=== PATIENT | female | born 1985 | race Caucasian/White ===

== ENCOUNTER 2017-06-23 10:52 | Emergency (ER) | payer OTHER ==
[2017-06-23 11:26] VITALS: BP 96/60
[2017-06-23 12:17] LABS: Bacteria,Urine 1+ /HPF (Negative); Bilirubin,Urine NEG (Negative); Blood,Urine NEG (Negative); Ketones,Urine NEG (Negative); Leukocyte Esterase,Urine NEG (Negative); Nitrite,Urine NEG (Negative); Protein,Urine <15 mg/dL mg/dL (Negative); Urobilinogen,Urine < 2.0 mg/dL (<2.0)
== END 2017-06-23 13:44 ==
LOC: ED 10:52
DX: Z53.21 Procedure and treatment not carried out due to patient leaving prior to being seen by health care provider (principal)
CPT/HCPCS: 81001; 81025

== ENCOUNTER 2020-06-27 02:56 | Inpatient (IN) | payer OTHER, MEDICAID ==
[2020-06-27] MEDS ORDERED: ACETAMINOPHEN 325 MG TAB PO PRN ×2 (04:12→05:31)
[2020-06-27] MEDS ORDERED: fentaNYL 100 MCG/2 ML INJ IV PRN (04:12)
[2020-06-27] MEDS ORDERED: MINERAL OIL 30 ML ORAL LIQD PO PRN (04:12)
[2020-06-27] MEDS ORDERED: TERBUTALINE 1 MG/1 ML INJ SUB-Q PRN (04:12)
[2020-06-27] MEDS ORDERED: LIDOCAINE (2%) 20 MG/1 ML VIAL 20 ML MDV INFILTRATI ONE (04:12)
[2020-06-27] MEDS ORDERED: AMPICILLIN/NS 2 GM/100 ML 2 GM/100 ML BAG IV ONE (04:12)
[2020-06-27] MEDS ORDERED: ePHEDrine SULFATE 50 MG/1 ML INJ IV PRN (04:12)
--- NOTE | 2020-06-27 04:21 | History and Physical Report ---
History of Present Illness Date of examination: 06/27/20 Date of admission: 06/27/2020 Chief complaint: Contractions History of present illness: 35 year old presents to L&D with contractions. RN reports patient's water broke while in triage. Patient received care at [facility] and records are available. LMP 10/01/2019. EDC 07/07/2020. significant for the following: AMA, GBS positive, pregestational diabetes, diet controlled. labs are as follows: O+, antibody screen negative, rubella immune, hepatitis B surface antigen negative, HIV negative, RPR nonreactive, gonorrhea negative, chlamydia negative, trichomonas negative, hemoglobin electrophoresis AA, tetra screen negative, 1 hour sugar test 181, 3 hour OGTT 73, 200, 159, 69, GBS positive. Past History Past Medical History: other (history of gestational diabetes with a previous ) Past Surgical History: no surgical history [employer]EL[employer] History: denies: chlamydia, gonorrhea, hepatitis B, hepatitis C, herpes, HIV, syphilis, trichomonas Family/Genetic History: none Social history: , full code. denies: smoking, alcohol abuse, prescription drug abuse, IV drug use - Obstetrical History Expected Date of Delivery: 07/07/20 Actual Gestation: 38 Week(s) 4 Day(s) : 2 Para: 1 Hx # Term Pregnancies: 1 Number of Pregnancies: 0 Spontaneous Abortions: 0 Induced : 0 Number of Living Children: 1 Medications and Allergies Allergies Allergy/AdvReac Type Severity Reaction Status Date / Time No Known Allergies Allergy Verified 06/27/20 04:17 Active Meds: Active Medications Acetaminophen (Tylenol) 650 mg PO Q4H PRN PRN Reason: Pain, Mild (1-3) Ephedrine Sulfate (Ephedrine Sulfate) 10 mg IV Q2M PRN PRN Reason: Hypotension Fentanyl (Sublimaze) 100 mcg IV Q2H PRN PRN Reason: Pain,Severe (7-10) LABOR PAIN Lactated Ringer's (Lactated Ringers) 1,000 mls @ 125 mls/hr IV DIRECT GEMA Oxytocin/Sodium Chloride (Pitocin/Ns 20 Unit/1000ml Drip) 20 units in 1,000 mls @ 125 mls/hr IV DIRECT GEMA Ampicillin Sodium (Ampicillin/Ns 2 Gm/100 Ml) 2 gm in 100 mls @ 100 mls/hr IV ONCE ONE; Protocol Stop: 06/27/20 05:11 Ampicillin Sodium (Ampicillin/Ns 1 Gm/50 Ml) 1 gm in 50 mls @ 100 mls/hr IV Q4HR GEMA; Protocol Lidocaine (Xylocaine 2%) 20 ml INFILTRATI ONCE ONE Stop: 06/27/20 04:13 Mineral Oil (Mineral Oil) 30 ml PO QHS PRN PRN Reason: Constipation Terbutaline Sulfate (Brethine) 0.25 mg SUB-Q ONCE PRN PRN Reason: Hyperstimulation/Hypertonicity Review of Systems All systems: negative (contractions and leaking of water from vagina) - Vital Signs Vital signs: Vital Signs Pulse Pulse Ox 77 99 06/27/20 03:22 06/27/20 03:22 Temp Pulse Resp BP Pulse Ox 99.8 F H 82 20 109/62 96 06/27/20 03:24 06/27/20 04:02 06/27/20 03:24 06/27/20 03:24 06/27/20 04:02 - Physical Exam Abdomen: Positive: normal appearance, soft. Negative: distention, tenderness, guarding, rigidity Genitourinary (Female): Positive: normal external genitalia, normal perenium. Negative: perineal/vulvar lesions (no lesions noted on careful exam) Vagina: Positive: other (clear fluid seen leaking from vagina, moderate amount) Uterus: Positive: enlarged. Negative: tender Anus/Rectum: Positive: normal perianal skin Extremities: Positive: normal. Negative: tenderness, edema - Obstetrical FHR: category 1 Uterine Contraction Monitor Mode: External Cervical Dilatation: 8 Cervical Effacement Percentage: 100 station: -1 Uterine Contraction Pattern: Regular Uterine Contraction Intensity: Moderate Results All other labs normal. Assessment and Plan A: at 38 weeks, 4 days gestation. Active labor. SROM. GBS positive. P: Admit. EFM. GBS prophylaxis. Anticipate vaginal .
[2020-06-27 04:56] LABS: Hematocrit 38.7 % (30.3-42.9); Hemoglobin 12.6 gm/dl (10.1-14.3); Mean Corpuscular HGB Conc 33 % (30-34); Mean Corpuscular Volume 91 fl (79-97); Platelet Count 167 K/mm3 (140-440); Red Blood Count 4.26 M/mm3 (3.65-5.03); Red Cell Distribution Width 17.9 % (13.2-15.2)
[2020-06-27] MEDS ORDERED: LACTATED RINGERS 1,000 ML IV SCH (05:00)
[2020-06-27] MEDS ORDERED: OXYTOCIN 10 UNIT/1 ML INJ ONE (05:14)
[2020-06-27] MEDS ORDERED: OXYTOCIN 10 UNIT/1 ML INJ IM ONE (05:17)
[2020-06-27] MEDS: OXYTOCIN 20 UNIT/1000ML DRIP 20 UNITS/1,000 ML BAG IV SCH ×2 (05:18→07:07)
[2020-06-27] MEDS ORDERED: MAGNESIUM HYDROXIDE (MOM) ORAL LIQD UDC PO PRN (05:31)
[2020-06-27] MEDS ORDERED: WITCH HAZEL/ GLYCERIN PAD TP PRN (05:31)
[2020-06-27] MEDS ORDERED: LANOLIN/ZINC/DIMETHICONE (LANSINOH) 7 GM TP PRN (05:31)
[2020-06-27] MEDS ORDERED: HYDROcodone/ACETAMINOPHEN 5-325 MG TAB PO PRN (05:31)
--- NOTE | 2020-06-27 05:36 | Procedure Note ---
OB Delivery Note - Delivery Date of Delivery: 06/27/20 Surgeon: OFELIA MCMULLEN Estimated blood loss: 200cc - Vaginal Delivery presentation: vertex Delivery position: OA Intrapartum events: precipitous labor- <3hr Delivery induction: none Delivery monitor: external FHT, external uterine Route of delivery: Delivery placenta: spontaneous Delivery cord: 3 umbilical vessels Episiotomy: none Delivery laceration: 1st degree Delivery repair: vicryl Anesthesia: none Delivery comments: Spontaneous vaginal delivery at 05:07 of liveborn female infant weighing 3.009 kg over 1st degree perineal laceration with apgars of 8/9. Baby was vigorous at and cried immediately; baby was placed skin to skin with mom right after delivery and dried with warm blankets. 3 vessel cord double clamped and cut. Cord blood obtained. Spontaneous delivery of intact placenta and membranes at 05:11 by crump mechanism. EBL 200 cc. Pitocin to IV fluids after delivery of placenta. Fundus firm and midline. First degree perineal laceration repaired with 3-0 vicryl. Vaginal sweep negative. Sponge and instrument counts correct.
[2020-06-27] MEDS ORDERED: AMPICILLIN/NS 1 GM/50 ML 1 GM/50 ML BAG IV SCH (08:15)
[2020-06-27] MEDS: DOCUSATE SODIUM 100 MG CAP PO SCH (09:47)
[2020-06-27] MEDS: IBUPROFEN 600 MG TAB PO SCH ×2 (09:47→15:00)
[2020-06-27 11:04] LABS: Hepatitis C Virus Antibody Non-Reactive (NonReactive)
[2020-06-27 18:34] LABS: Hematocrit 33.5 % (30.3-42.9); Hemoglobin 10.9 gm/dl (10.1-14.3)
[2020-06-28] MEDS: IBUPROFEN 600 MG TAB PO SCH ×4 (00:06→23:20)
[2020-06-28] MEDS: DOCUSATE SODIUM 100 MG CAP PO SCH ×3 (00:06→23:20)
--- NOTE | 2020-06-28 11:50 | Progress Note ---
Assessment and Plan A: PP Day #1 Pregestational Diabetes P: Follow Routine Orders Start GDM Diet Accuchecks after Meals Subjective - Subjective Date of service: 06/28/20 Patient reports: appetite normal, voiding normally, pain well controlled, flatus, ambulating normally : doing well, bottle feeding Objective - Vital Signs Latest vital signs: Vital Signs Temp Pulse Resp BP BP Pulse Ox 06/28/20 08:05 98.1 F 62 20 102/62 06/28/20 00:48 98.3 F 74 18 97/55 95 06/27/20 16:56 98.3 F 69 18 82/55 98 06/27/20 12:33 98.0 F 63 18 85/55 97 Intake and Output 06/27/20 06/28/20 06/28/20 22:59 06:59 14:59 Intake Total 240 120 600 Output Total 1100 Balance -860 120 600 Intake: Oral 240 600 Intake, Free Water 120 Output: Urine 1100 Void 1100 Other: Total, Intake Amount 240 240 Total, Output Amount 300 # Voids Void 1 2 1 - Exam Breasts: Present: normal Cardiovascular: Present: Regular rate Lungs: Present: Clear to auscultation, Normal air movement Abdomen: Present: normal appearance, soft, normal bowel sounds Uterus: Present: normal, firm, fundal height below umbilicus Extremities: Present: normal
[2020-06-29] MEDS: IBUPROFEN 600 MG TAB PO SCH (05:24)
[2020-06-29] MEDS: DOCUSATE SODIUM 100 MG CAP PO SCH (10:00)
--- NOTE | 2020-06-29 10:26 | Discharge Summary ---
Providers - Providers Date of Admission: 06/27/20 04:12 Date of discharge: 06/29/20 Attending physician: OSMAN KELSEY JR, MD Primary care physician: OSMAN KELSEY JR, MD Hospitalization Reason for admission: active labor Delivery: Episiotomy: none Laceration: 1st degree (healing as expected) Other procedures: none complications: none Discharge diagnosis: IUP at term delivered, other (anemia) [place] baby: female Hospital course: See admission H & P; OB delivery summary and PP progress notes Condition at discharge: Good Disposition: DC-01 TO HOME OR SELFCARE - Discharge Diagnoses (1) Status post normal vaginal delivery Status: Acute (2) Anemia Status: Acute Qualifiers: Anemia type: other cause Other causes of anemia: acute posthemorrhagic Qualified Code(s): D62 - Acute posthemorrhagic anemia Plan - Provider Discharge Summary Activity: routine, no sex for 6 weeks, no heavy lifting 4 weeks, no strenuous exercise Diet: other (Iron rich diet) Instructions: routine Additional instructions: [] Smoking cessation referral if applicable(refer to patient education folder for contact #) [] Refer to [facility] Booklet Call your doctor immediately for: * Fever > 100.5 * Heavy vaginal bleeding ( >1 pad per hour) * Severe persistent headache * Shortness of breath * Reddened, hot, painful area to leg or breast * Drainage or odor from incision. * Keep vaginal laceration site clean and dry at all times and follow doctor's instructions regarding bathing/showering - Follow up plan Follow up: OSMAN KELSEY JR, MD [Primary Care Provider] - 6 Weeks
[2020-06-29] MEDS ORDERED: MAGNESIUM HYDROXIDE (MOM) ORAL LIQD UDC PO ONE (10:29)
[2020-06-29 14:04] VITALS: BP 100/65
== END 2020-06-29 13:30 | disposition home or self-care (01) | DRG 806 ==
LOC: TRG 02:56 → APU 03:00 → LD 04:12 → TRG 04:12 → OB 08:36
PROVIDERS: ADMIT Obstetrics & Gynecology; ATTEND Obstetrics & Gynecology
PROC: 10E0XZZ Delivery of Products of Conception, External Approach (ICD-10-PCS; principal; 2020-06-27)
PROC: 0HQ9XZZ Repair Perineum Skin, External Approach (ICD-10-PCS; 2020-06-27)
DX: O99.824 Streptococcus B carrier state complicating childbirth (principal); D62 Acute posthemorrhagic anemia; Z37.0 Single live birth; O24.12 Pre-existing type 2 diabetes mellitus, in childbirth; O62.3 Precipitate labor; E11.9 Type 2 diabetes mellitus without complications; O70.0 First degree perineal laceration during delivery; O90.81 Anemia of the puerperium; Z3A.38 38 weeks gestation of pregnancy
CPT/HCPCS: 36415; 82962; 85014; 85018; 85027; 86592; 86706; 86803; 86850; 86900; 86901; 87806; G0378; J0290; J2590; J7120; U0003-CS

== ENCOUNTER 2021-01-11 11:24 | Day surgery (SDC) | payer MEDICAID ==
--- NOTE | 2021-01-06 10:18 | History and Physical Report ---
History of Present Illness Date of examination: 01/06/21 Chief complaint: desiring permanent sterilization History of present illness: 35 yo c/b hx pregestational DM (diet controlled), recently s/p 06/27/20 presenting desiring permanent sterilization. Reports that she has completed c hildbearing and happy with current family size. Discussed other forms of contraception and declined. Past History Past Medical History: diabetes Past Surgical History: no surgical history [employer] DEVELOPER History: chlamydia (hx in 2014) Family/Genetic History: none Social history: no significant social history - Obstetrical History : 2 Para: 2 Number of Living Children: 2 Medications and Allergies Allergies Allergy/AdvReac Type Severity Reaction Status Date / Time No Known Allergies Allergy Verified 01/05/21 09:51 Home Medications Medication Instructions Recorded Confirmed Last Taken Type No Known Home Medications [No 06/28/20 01/05/21 Unknown History Reported Home Medications] Review of Systems All systems: negative (except HPI) - Physical Exam Cardiovascular: Regular rate Lungs: Positive: Clear to auscultation, Normal air movement Abdomen: Positive: normal appearance, normal bowel sounds Results All other labs normal. Assessment and Plan - Patient Problems (1) Admission for sterilization Status: Acute Plan to address problem: To OR for bilateral tubal ligation with Filishie Clips --Consented in the chart --Questions solicited and answered --Anticipate discharge home as day surgery procedure (2) Diabetes Status: Acute Qualifiers: Diabetes mellitus type: type 2 Plan to address problem: Will monitor CBGs while inpatient
[~2021-01-11 11:24] MED LIST: LACTATED RINGERS 1,000 ML IV SCH
[2021-01-11] MEDS ORDERED: BACTERIOSTATIC SODIUM CHLORIDE 0.9% 30 ML VIAL INFILTRATI ONE (11:32)
[2021-01-11] MEDS ORDERED: ONDANSETRON 4 MG/2 ML INJ IV PRN (12:09)
[2021-01-11] MEDS ORDERED: HYDROmorphone 1 MG/1 ML INJ IV PRN ×2 (12:09)
--- NOTE | 2021-01-11 12:10 | Anesthesia Day of Surgery ---
Anesthesia Day of Surgery - Day of Surgery Patient Examined: Yes Patient H&P Reviewed: Yes Patient is NPO: Yes
--- NOTE | 2021-01-11 12:11 | Anesthesia Consultation ---
Anesthesia Consult and Med Hx Date of service: 01/11/21 - Airway Anesthetic Teeth Evaluation: Good ROM Head & Neck: Adequate Mental/Hyoid Distance: Adequate Mallampati Class: Class II Intubation Access Assessment: Good - Pre-Operative Health Status ASA Pre-Surgery Classification: ASA1 Proposed Anesthetic Plan: General - Pulmonary Hx Asthma: No COPD: No Hx Pneumonia: No - Central Nervous System Hx Psychiatric Problems: No - Endocrine Hx End Stage Renal Disease: No Hx Non-Insulin Dependent Diabetes: Yes (PRE. Gestational) - Other Systems Hx Alcohol Use: No Hx Cancer: No
[2021-01-11 12:55] LABS: Basophils % (Auto) 0.6 % (0.0-1.8); Eosinophils # (Auto) 0.1 K/mm3 (0.0-0.4); Eosinophils % (Auto) 1.6 % (0.0-4.3); Hematocrit 40.9 % (30.3-42.9); Hemoglobin 13.7 gm/dl (10.1-14.3); Lymphocytes # (Auto) 2.7 K/mm3 (1.2-5.4); Lymphocytes % (Auto) 45.8 % (13.4-35.0); Mean Corpuscular HGB Conc 34 % (30-34); Mean Corpuscular Volume 93 fl (79-97); Monocytes # (Auto) 0.3 K/mm3 (0.0-0.8); Monocytes % (Auto) 4.5 % (0.0-7.3); Platelet Count 225 K/mm3 (140-440); Red Blood Count 4.39 M/mm3 (3.65-5.03); Red Cell Distribution Width 12.8 % (13.2-15.2)
[2021-01-11] MEDS ORDERED: LIDOCAINE MPF (2%) 20 MG/1 ML VIAL 5 ML ONE (14:32)
[2021-01-11] MEDS ORDERED: ONDANSETRON 4 MG/2 ML INJ ONE (14:32)
[2021-01-11] MEDS ORDERED: dexAMETHasone 20 MG/5 ML VIAL ONE (14:32)
[2021-01-11] MEDS ORDERED: propofoL 200 MG/20 ML VIAL IV ONE (14:32)
[2021-01-11] MEDS ORDERED: KETOROLAC 30 MG/1 ML INJ ONE (14:32)
[2021-01-11] MEDS ORDERED: ROCURONIUM 50 MG/5 ML INJ IV ONE (14:32)
[2021-01-11] MEDS ORDERED: HYDROmorphone 1 MG/1 ML INJ ONE (14:32)
[2021-01-11] MEDS ORDERED: BUPIVACAINE/PF (0.5%) 5 MG/1 ML 10 ML VIAL INFILTRATI ONE (14:38)
[2021-01-11] MEDS ORDERED: GLYCOPYRROLATE 0.4 MG/2 ML INJ ONE ×2 (15:00→15:18)
[2021-01-11] MEDS ORDERED: SODIUM CHLORIDE 0.9% IRR 1,500 ML BOTTLE IR ONE (15:11)
[2021-01-11] MEDS ORDERED: BUPIVACAINE/PF (0.25%) 2.5 MG/ML 10 ML VIAL INFILTRATI ONE (15:11)
[2021-01-11] MEDS ORDERED: ePHEDrine SULFATE 50 MG/1 ML INJ ONE (15:11)
[2021-01-11] MEDS ORDERED: NEOSTIGMINE 10MG/10 ML INJ MDV ONE (15:18)
[2021-01-11] MEDS ORDERED: LACTATED RINGERS 1,000 ML ONE (15:19)
[2021-01-11] MEDS ORDERED: IBUPROFEN 600 MG TAB PO PRN (15:37)
[2021-01-11] MEDS ORDERED: HYDROcodone/ACETAMINOPHEN 5-325 MG TAB PO PRN (15:37)
[2021-01-11] MEDS ORDERED: oxyCODONE /ACETAMINOPHEN 5-325MG TAB PO PRN (15:37)
--- NOTE | 2021-01-11 15:40 | Procedure Note ---
Date of procedure: 01/11/21 Pre-op diagnosis: desiring permanent sterilization Post-op diagnosis: same Procedure: Preoperative diagnosis: Multiparous woman desiring permanent sterilization Postoperative diagnosis: Same Operation performed: 1. Exam under anesthesia 2. Laparoscopic bilateral tubal ligation with Filshie clips Surgeon: Osman Klesey Anesthesia: General endotracheal anesthesia Estimated blood loss 10 cc IVF 1000cc UOP 150cc Pathology Specimens: none Complications none Disposition and condition: To the PACU in stable condition and then discharged home Findings: 1. Small, mobile, anteverted uterus without adnexal masses on EUA 2. Normal uterus and bilateral tubes and ovaries on laparoscopy 3. Normal-appearing liver, gallbladder next Statement of medical necessity 35 yo G 2 P 2 who desires permanent sterilization. The patient was extensively counseled and offered reversal methods of contraception but declined. She was informed about the procedure failure rates and regret rates under the age of 30 years. The procedure risk, benefits, indications and alternatives were thoroughly reviewed with patient. Description of operation: After obtaining informed consent, the patient was taken to the operating room where satisfactory general endotracheal anesthesia was established. The patient was placed in modified supine position using Campos stirrups ensuring proper positioning and cushioning to avoid nerve injury. An exam under anesthesia was performed with the findings noted above. She was prepped and draped in the usual sterile fashion. Straight catheterization of the bladder was performed. A [employer] manipulator was placed in order to aid in uterine manipulation. Attention was directed to the abdomen. A 5 mm incision was placed supraumbilically. With the patient horizontal, the camera and 5 mm trocar were introduced into the abdominal cavity while tenting up the abdominal wall with towel clips in order to gain entry into the abdominal cavity. Intraperitoneal placement was confirmed with initial pressure of 20 mmHg on insufflation. Pneumoperitoneum was obtained in the placed and the patient was placed in Trendelenburg position. A midline suprapubic incision was made with a scalpel and a 8 mm trocar was placed under direct visualization. The blunt grasper was used in order to inspect the pelvis with the findings noted above. The fallopian tubes were identified and followed out to the fimbriated ends. The entire mid isthmic girth of the left tube was grasped perpendicularly without difficulty with applicator. The clip was applied and good applied with tubal blanching was noted. There was no bleeding in the mesosalpinx. The same procedure was performed on contralateral side. This procedure was completed x2 with a result of 2 Filshie clips on each tube. All instruments were removed. Suprapubic trocar was removed under direct verbalization with port site hemostasis noted. The pneumoperitoneum was reduced and the umbilical trocar was removed under direct visitation while with withdrawing the laparoscope. The patient was returned to horizontal dorsal supine position. The skin incisions were closed with 2-0 Vicryl in a subcuticular fashion and dressed with Dermabond. The [employer] manipulator was removed from vagina. The patient tolerated the procedure well was extubated without difficulty and transferred recovery room in good condition. Sponge, needle instrument counts were correct x2. There is no surgical or anesthetic complications. Anesthesia: GETA Surgeon: OSMAN KELSEY JR Estimated blood loss: other (10cc) IV fluids: 1,000 Urine output: 150 Pathology: none Condition: stable Disposition: same day
[2021-01-11 16:31] VITALS: BP 119/70
--- NOTE | 2021-01-11 19:08 | Post Anesthesia Evaluation ---
- Post Anesthesia Evaluation Patient Participated: Yes Airway Patent: Yes Stable Respiratory Function: Yes Nausea/Vomiting: No Temp > 96.8F: Yes Pain Manageable: Yes Adequeate Hydration: Yes Anesthesia Complications: No Block Receding Appropriately: Not Applicable Patient on Ventilator: No
== END 2021-01-11 17:15 | disposition home or self-care (01) ==
LOC: OR 11:24
PROVIDERS: ATTEND Obstetrics & Gynecology
DX: Z30.2 Encounter for sterilization (principal); D64.9 Anemia, unspecified; E11.9 Type 2 diabetes mellitus without complications; Z79.899 Other long term (current) drug therapy
CPT/HCPCS: 36415; 58671; 81025; 82962; 85025; 86850; 86900; 86901; J1100; J1170; J1885; J2405; J2704; J2710; J7120